=== PATIENT | male | born 1955 ===

== ENCOUNTER 2017-04-11 06:10 | Day surgery (SDC) | payer OTHER ==
[2017-04-01 13:32] VITALS: BMI 26.8
[2017-04-11 06:54] LABS: BASO # 0.03 K/mm3 (0.0-2.0); BASO % 0.5 % (0.0-3.0); EOS # 0.2 (0.0-0.7); EOS % 2.7 % (1.5-5.0); GRAN # 3.75 (1.4-6.5); GRAN % 67.9 % (50.0-68.0); HEMOGLOBIN 13.5 g/dL (14.0-18.0); LYMPH # 1.2 (1.2-3.4); LYMPH % 21.5 % (22.0-35.0); MEAN CELL VOLUME 90.7 fl (80.0-105.0); MEAN CORPUSCULAR HEMOGLOBIN 29.2 pg (25.0-35.0); MEAN CORPUSCULAR HGB CONC 32.1 g/dl (31.0-37.0); MEAN PLATELET VOLUME 11.4 fl (7.0-11.0); MONO # 0.4 (0.1-0.6); MONO % 7.4 % (1.0-6.0); RBC 4.63 10^6/uL (3.5-6.1); RED CELL DISTRIBUTION WIDTH 11.7 % (11.5-14.5); WHITE BLOOD COUNT 5.5 10^3/ul (4.5-11.0)
[2017-04-11 06:55] LABS: BLOOD UREA NITROGEN 20 mg/dL (7-21); CALCIUM 9.6 mg/dL (8.4-10.5); GFR AFRICAN-AMERICAN > 60; GFR NON-AFRICAN AMERICAN > 60
[2017-04-11 07:01] LABS: INR 1.03 (0.93-1.08); PARTIAL THROMBOPLASTIN TIME 30.6 Seconds (25.1-36.5); PROTHROMBIN TIME 11.9 SECONDS (9.4-12.5)
[2017-04-11] MEDS ORDERED: Lidocaine 2% Inj (20ml) ONE (07:09)
[2017-04-11] MEDS ORDERED: Phenylephrine 10 mg/ml Inj ONE (07:10)
[2017-04-11] MEDS ORDERED: Nitroglycerin 50mg in D5W 0 MG/0 ML BOTTLE IV ONE (07:10)
[2017-04-11] MEDS ORDERED: HEPARIN SODIUM/NS 2,000 ML IV ONE (07:10)
[2017-04-11] MEDS ORDERED: Iohexol 350mgl/ml 50 ML ONE (07:44)
[2017-04-11] MEDS ORDERED: Iohexol 350 MG/100 ML VIAL ONE (07:44)
[2017-04-11] MEDS ORDERED: Midazolam 2 MG/2 ML VIAL ONE ×2 (07:44→08:04)
[2017-04-11] MEDS ORDERED: Sodium Chloride 0.9% 1,000 ML IV SCH (09:00)
--- NOTE | 2017-04-11 16:12 | CARDCATH ---
PROCEDURE DATE: 04/11/2017 CARDIAC CATHETERIZATION AND PTCA HISTORY: The patient is a 61-year-old male with cardiac risk factors of hypertension and hypercholesterolemia who presents with chest pain and abnormal stress test. Because of this, cardiac catheterization was recommended. PROCEDURE: Left heart catheterization with coronary arteriography, left ventriculogram, supra-aortic valvular injection as well as PTCA and stent of the mid LAD. The right femoral artery was cannulated with a 6-Sinhala sheath. There were no complications. I performed moderate sedation which included the presence of an independent trained observer that assisted in monitoring the patient's level of consciousness and physiologic status. After administration of Versed and fentanyl, my intra-service time was 30 minutes. The findings on catheterization revealed left ventricle that contracted normally. Estimated ejection fraction of 60%. His coronary anatomy revealed a right dominant circulation. The RCA revealed intimal irregularities without significant stenoses. The left main artery was unremarkable. The LAD revealed diffuse atherosclerosis with a 99% stenosis in the midportion. The diagonal vessel was free of significant disease. The circumflex artery and obtuse marginal branches revealed intimal irregularities without significant stenoses. Supra-aortic valvular injection revealed a dilated ascending aorta with no aortic insufficiency. The patient was started on intravenous Angiomax on the fluoroscopic guide, the guiding catheter was placed in the ostium of the left main artery. An 0.014 ATW wire was used to cross the LAD lesion. A 2.0 balloon was utilized to predilate the lesion at 10 atmospheres of pressure. After balloon deflation and removal, a 2.75 x 12 mm drug-eluting stent was placed and deployed at 12 atmospheres of pressure. Repeat coronary arteriography after balloon deflation and removal revealed an excellent result with no residual stenosis and ANA III flow. Angio-Seal was used to close the femoral artery site. The patient tolerated the procedure well. In summary, the procedure was successful PTCA and stent of a 99% mid LAD lesion with a drug-eluting stent. Cardiac catheterization reveals normal LV function with an EF of 60% and single-vessel CAD of the LAD. The ascending aorta was dilated with no aortic insufficiency. Given these findings, the patient's treatment needs to include aspirin indefinitely and Plavix for least a year and undergo a strict cardiac risk reduction program which needs to include statin therapy. Strict control of his blood pressure would be appropriate. Micha Watkins MD [facility] # [id number]
--- NOTE | 2017-04-11 21:03 | HP ---
HISTORY OF PRESENT ILLNESS: I was called down to the cath room to see Mr. Ivey because he is being admitted to Dr. Micha Watkins to set a cardiac cath on him. Now we are going to watch him overnight. There was a stent placement. He is a 61-year-old white man with issues from outpatient workup with his primary care doctor and was sent for a cardiac cath to Dr. Watkins. He has had chest pain and shortness of breath. He has a past medical history of high cholesterol, hypertension, gastroesophageal reflux disease. Family history of cancer. He had a heart murmur since he was age 18. Unknown family history with his father. He had surgeries of right and left hernia over 10 years ago. No smoking. Drinks alcohol socially, with history of cocaine greater than 10 years ago though. His mother has a history of cardiovascular disease. He wears reading glasses. He was going for left cardiac cath today. He has no known drug allergies. On review of systems, no acute vision or hearing changes. No sore throat. He has some chest pain, some shortness of breath, and at times it is a bit too much. No abdominal pain, nausea, vomiting, constipation, or diarrhea. No extremity pain. Skin for the most part is, as far as he tells, okay. Not anxious, was little bit nervous. No sweating. No tremors. PHYSICAL EXAMINATION: VITAL SIGNS: 98.3 temperature, 58 pulse, 162/85 blood pressure, 18 respiratory rate, 97% O2 sat on room air. HEENT: Head is atraumatic, normocephalic. Extraocular muscles are intact. Pupils equally reactive to light and accommodation. Throat is moist. NECK: Supple. HEART: Regular rate. LUNGS: Decreased breath sounds, clear to auscultation. ABDOMEN: Soft, mildly obese, nontender. EXTREMITIES: No edema. SKIN: For the most part that I could tell, no rashes or ulcers. NEUROLOGIC: He is alert and oriented x3. Cranial nerves II-XII grossly intact. Thyroid midline. No palpable appreciable lymphadenopathy. MEDICATIONS: He will be on Ecotrin, Lipitor, Lopressor, Plavix and IV fluids. LABORATORY DATA: He has a 143 sodium, potassium 4.1, BUN 20, creatinine 1, GFR is greater than 60, sugar is 102, calcium is 9.6. INR is 1.03. He has got a 5.5 white count, 13.5 hemoglobin, 42 hematocrit, with 169 platelets. ASSESSMENT AND PLAN: He is status post cardiac cath and stent placement. We will watch him overnight. He is going to lay flat for 6 hours. Plan would be to discharge him tomorrow if everything goes well. Check his labs in the morning. Karthikeyan Vargas DO
--- NOTE | 2017-04-11 22:29 | CARD ---
APPROVED REPORT EKG Measurement Heart [id number] [place] [id number] <Conclusion> Sinus bradycardia Left bundle branch block Abnormal ECG
--- NOTE | 2017-04-11 22:35 | CARD ---
APPROVED REPORT EKG Measurement Heart [id number] CT [id number] <Conclusion> Sinus bradycardia Left bundle branch block Abnormal ECG
[2017-04-12 06:28] VITALS: RESP 18; TEMP 97.7; O2SAT 95
[2017-04-12 07:20] LABS: BASO # 0.02 K/mm3 (0.0-2.0); BASO % 0.3 % (0.0-3.0); EOS # 0.2 (0.0-0.7); EOS % 2.6 % (1.5-5.0); GRAN # 3.48 (1.4-6.5); GRAN % 60.5 % (50.0-68.0); HEMOGLOBIN 13.1 g/dL (14.0-18.0); LYMPH # 1.7 (1.2-3.4); LYMPH % 28.9 % (22.0-35.0); MEAN CELL VOLUME 90.1 fl (80.0-105.0); MEAN CORPUSCULAR HEMOGLOBIN 28.2 pg (25.0-35.0); MEAN CORPUSCULAR HGB CONC 31.3 g/dl (31.0-37.0); MEAN PLATELET VOLUME 11.5 fl (7.0-11.0); MONO # 0.4 (0.1-0.6); MONO % 7.7 % (1.0-6.0); RBC 4.65 10^6/uL (3.5-6.1); RED CELL DISTRIBUTION WIDTH 11.6 % (11.5-14.5); WHITE BLOOD COUNT 5.8 10^3/ul (4.5-11.0)
[2017-04-12 08:02] LABS: ALB/GLOB RATIO 1.3 (1.1-1.8); ALBUMIN 3.9 g/dL (3.0-4.8); ALT/SGPT 36 U/L (7-56); AST/SGOT 32 U/L (17-59); BLOOD UREA NITROGEN 20 mg/dL (7-21); CALCIUM 9.4 mg/dL (8.4-10.5); GFR AFRICAN-AMERICAN > 60; GFR NON-AFRICAN AMERICAN > 60
[2017-04-12 10:06] VITALS: BP 136/98; PULSE 83
--- NOTE | 2017-04-12 10:27 | PN ---
DATE: 04/12/2017 CARDIOLOGY FOLLOWUP SUBJECTIVE: The patient is asymptomatic, ambulating without symptoms. PHYSICAL EXAMINATION VITAL SIGNS: Blood pressure is 150/84, heart rates in the 70s. NECK: Negative JVD. LUNGS: Without rales. HEART: Reveals S1 and S2. EXTREMITIES: Without edema. LABORATORY DATA: BUN and creatinine are unremarkable. Hemoglobin is 13.1. IMPRESSION: 1. Status post percutaneous transluminal coronary angioplasty and stent of the left anterior descending artery with a drug-eluting stent. 2. Hypertension. 3. Hypercholesterolemia. 4. Exertional dyspnea. PLAN: Given these findings, the patient is doing well. The patient is okay for discharge today. He will need to remain on aspirin indefinitely and Plavix for at least a year. We will change his pravastatin to Lipitor. Followup and instructions have been given to the patient in detail. Micha Watkins MD
--- NOTE | 2017-04-13 05:20 | DS ---
SUMMARY: I saw Mr. Rachel. He is doing well. He is being discharged today by Dr. Watkins. He was here for status post percutaneous transluminal coronary angioplasty and stent of the left anterior descending artery with drug-eluting stent. He has hypertension, high cholesterol, exertional dyspnea. He could be on aspirin and Plavix for at least a year. Pravastatin will be changed to Lipitor. He will follow up on the outpatient. He did very well with his cardiac cath by Dr. Watkins. Karthikeyan Vargas DO
== END 2017-04-12 11:19 | disposition home or self-care (01) ==
LOC: CATH 06:10 → 2RNO 08:57 → CATH 04-12 11:19
PROVIDERS: ATTEND Internal Medicine Cardiovascular Disease
DX: I25.10 Atherosclerotic heart disease of native coronary artery without angina pectoris (principal); K21.9 Gastro-esophageal reflux disease without esophagitis; I10 Essential (primary) hypertension; E78.00 Pure hypercholesterolemia, unspecified; R01.1 Cardiac murmur, unspecified; Z82.49 Family history of ischemic heart disease and other diseases of the circulatory system
CPT/HCPCS: 36415 ×2; 80048; 80053; 85025 ×2; 85027; 85610; 85730; 86850; 86900; 93005; 93458; 99152; 99153; C1725; C1760; C1769 ×2; C1874; C1887; C2629; C9600; J0583; J1644; J2250; J3010; J7030; J7040; Q9967 ×2